=== PATIENT | female | born 1990 | race African-American/Black ===

== ENCOUNTER 2020-02-19 23:05 | Emergency (ER) | payer MEDICAID ==
[~2020-02-19] VITALS: Ht 165.1 cm; Wt 56.7 kg
[2020-02-19 23:20] VITALS: Ht 165.1 cm; Wt 56.7 kg
[2020-02-20 00:07] VITALS: BP 114/70
== END 2020-02-20 00:07 | disposition home or self-care (01) ==
LOC: ED 23:05
DX: S93.401A Sprain of unspecified ligament of right ankle, initial encounter (principal); X58.XXXA Exposure to other specified factors, initial encounter; Y93.39 Activity, other involving climbing, rappelling and jumping off; Y92.89 Other specified places as the place of occurrence of the external cause; Y99.8 Other external cause status
CPT/HCPCS: Q0092